=== PATIENT | female | born 1990 | race Caucasian/White ===

== ENCOUNTER 2018-12-15 12:14 | Inpatient (IN) | payer OTHER ==
[~2018-12-15] VITALS: Ht 160 cm; Wt 90.7 kg
[2018-12-15] MEDS ORDERED: PRENATABS RX T1 EACH PO (23:07)
== END 2018-12-18 17:53 | DRG 807 ==
LOC: OBS/DEL 12:14 → LDR 23:08 → OB/GYN 23:08
PROVIDERS: ADMIT Obstetrics & Gynecology
PROC: 4A1HXCZ Monitoring of Products of Conception, Cardiac Rate, External Approach (ICD-10-PCS; 2018-12-15)
PROC: 10E0XZZ Delivery of Products of Conception, External Approach (ICD-10-PCS; principal; 2018-12-16)
PROC: 0HQ9XZZ Repair Perineum Skin, External Approach (ICD-10-PCS; 2018-12-16)
PROC: 4A033R1 Measurement of Arterial Saturation, Peripheral, Percutaneous Approach (ICD-10-PCS; 2018-12-16)
DX: O70.0 First degree perineal laceration during delivery (principal); Z37.0 Single live birth; Z3A.39 39 weeks gestation of pregnancy; Z22.330 Carrier of Group B streptococcus